=== PATIENT | male | born 1985 | race Caucasian/White ===

== ENCOUNTER 2020-08-30 03:25 | Emergency (ER) | payer MEDICAID, SELFPAY ==
[2020-08-30 03:59] VITALS: BP 119/68; PULSE 94; RESP 20; TEMP 36.9; O2SAT 96; BMI 33.5
[2020-08-30 05:36] VITALS: BP 132/77; PULSE 93; RESP 18; O2SAT 95
--- NOTE | 2020-08-30 05:53 | PC.NURSE ---
PT SEATED ON STRETCHER IN NO DISTRESS. PT HAS EXPIRATORY WHEEZING IN ALL MCDANIEL. MODERATE AIR MOVEMENT.
--- NOTE | 2020-08-30 06:23 | ED.SOB ---
HPI - SOB/Dyspnea General Chief Complaint: Dyspnea Stated Complaint: SOB Time Seen by Provider: 08/30/20 06:15 Source: patient Mode of arrival: ambulatory Limitations: no limitations History of Present Illness HPI Narrative: 35-year-old male who presents emergency department for evaluation of shortness of breath x1 week. Patient states that he has a history of asthma and he ran out of his Breo approximately 1 week prior has not been able to get a refill. Patient states that his asthma usually flares up this time of year secondary to pollen and heat. He states that he feels short of breath and has dyspnea on exertion his occasional chest tightness secondary to difficulty breathing. Points to the center of his chest when asked to localize the tightness he states that is currently mild intensity. He has [id number] dyspnea on exertion. He has been using his rescue inhaler but this is not been affective. He denied fever, chills, nausea, vomiting or diarrhea. He denies myalgias arthralgias. Patient states that he has received 2 shots of the [facility] COVID-19 vaccination in his last vaccination was in May of 2020. Related Data Previous Rx's Medication Instructions Recorded albuterol sulfate 2 puff INHALATION Q4-6H PRN #8.5 g 08/30/20 fluticasone furoate-vilanterol 1 inh INHALATION DAILY #60 ea 08/30/20 [Breo Ellipta] prednisone 60 mg PO DAILY 7 Days #21 tab 08/30/20 Allergies Allergy/AdvReac Type Severity Reaction Status Date / Time SEASONAL ALLERGIES Allergy Unknown DIFFICULTY Uncoded 12/08/19 15:48 BREATHING Review of Systems Review of Systems: Yes all other systems are reviewed and are negative [facility] Past Medical History FOR[facility] Narrative: Past medical history: Asthma. Past surgical history: None. Social history: He denies tobacco, alcohol and drug use. Medical History Asthma Physical Exam Vital Signs: Vital Signs: Last Vital Signs Temp 98.5 F 08/30/20 03:59 Pulse 93 08/30/20 05:36 Resp 18 08/30/20 05:36 BP 132/77 08/30/20 05:36 Pulse Ox 95 08/30/20 05:36 Body Mass Index 33.5 Const: General: cooperative and healthy appearing Orientation/consciousness: oriented to person and oriented to place Limitations: no limitations HENMT: Head: Yes normal to inspection, Yes normocephalic and Yes atraumatic Ears: external ears normal General nose exam: Normal external nose present Face and sinus: Yes normal facial exam Mouth: Normal oral and palatal mucosa present Throat: Yes posterior oropharynx normal Eyes: Periorbital: periorbital findings normal Eyelids: Yes eyelids normal Conjunctivae: conjunctivae normal Sclerae: sclerae normal Corneas: corneas normal Pupils: Equal, round and reactive pupils present Direct Ophthalmoscopy: normal light reflex Neck: Neck: Yes full ROM, Yes no lymphadenopathy, Yes no meningeal signs, Yes trachea midline and Yes supple Chest: Chest palpation & inspection: normal inspection of the chest and normal palpation of entire chest wall Resp: Effort & Inspection: normal respiratory effort and able to speak in complete sentences Auscultation: no crackles, no rhonchi and wheezes scattered wheezes Cardio: Rate: regular rate Rhythm: regular rhythm Heart sounds: S1 normal heart sound present, S2 normal heart sound present and no murmurs GI: Inspection: Yes normal to inspection Palpation (GI): Soft to palpation, nontender, no guarding, not rigid and No hepatosplenomegaly present : General: Yes no CVA tenderness Back/Spine/Pelvis: Back: no CVA tenderness Cervical Spine: normal cervical lordosis Thoracic/Lumbar Spine: thoracic and lumbar spine normal to inspection Skin: Lesions: no lesions Rashes: no rashes Wounds: no wounds Neuro: General: oriented to person, oriented to place and no meningeal signs Cranial nerves: Yes CN's II-XII intact bilaterally and Yes Equal, round and reactive pupils present Cognition (Neuro): normal cognition Motor exam (neuro): 5/5 motor strength present throughout Extrem: General: Yes normal to inspection and Yes full ROM Psych: Appearance: well kempt Mental Status: mental status grossly normal Speech and movement: Normal speech and movement present Affect: normal affect Attitude: cooperative Thought process: Normal thought process present Thought content: Normal thought content present Course Course Course Narrative: 35-year-old male who presents emergency department for evaluation of shortness of breath, chest tightness and occasional cough. Patient does have a history of asthma and ran out of his Breo 1 week prior. Patient's asthma is usually triggered by change in weather such as excess heat and pollen. Physical examination revealed normal vital signs. His lung exam revealed diffuse wheezing otherwise was unremarkable. Patient's presentation is consistent with an asthma exacerbation. Patient was started on prednisone 60 mg once a day for 1 week. I did give a prescription for Breo and for the albuterol inhaler. He was discharged home with printed and verbal instructions. Discharge Plan Discharge Clinical Impression: Asthma with exacerbation Qualifiers: Asthma severity: moderate Asthma persistence: unspecified Qualified Code(s): J45.901 - Unspecified asthma with (acute) exacerbation Patient Disposition: Home, Self-Care Instructions: Asthma (ED) Additional Instructions: Take your Breo once a day as prescribed Continue use your albuterol inhaler 2 puffs every 4-6 hours as needed for shortness of breath. Take prednisone 20 mg pills, 3 pills once a day for 1 week. Follow-up with your doctor in 2 days. Please return to the emergency department if your symptoms get worse or if you develop any symptoms that are concerning to you. Prescriptions: New prednisone 20 mg tablet 60 mg PO DAILY 7 Days Qty: 21 RF: 0 Breo Ellipta 200-25 mcg/dose blister with device 1 inh inhalation DAILY Qty: 60 RF: 0 albuterol sulfate 90 mcg/actuation HFA aerosol inhaler 2 puff inhalation Q4-6H PRN (Reason: shortness of breath or wheezing) Qty: 8.5 RF: 0
== END 2020-08-30 07:02 | disposition home or self-care (01) ==
LOC: HO.ED 06:43
PROVIDERS: Emergency Provider Emergency Medicine Emergency Medical Services
DX: J45.901 Unspecified asthma with (acute) exacerbation (principal)
CPT/HCPCS: 99283

== ENCOUNTER 2020-10-13 12:27 | Emergency (ER) | payer MEDICAID, SELFPAY ==
--- NOTE | ~2020-10-13 | XR_ITS ---
EXAMINATION: XR CHEST CLINICAL INFORMATION: Asthma. COMPARISON: 05/25/2019 chest radiograph. TECHNIQUE: Frontal view of the chest was obtained. FINDINGS: No significant abnormality is noted involving the heart, lungs, mediastinum, bony thorax or soft tissues. XR/XR chest 1V IMPRESSION: No acute cardiopulmonary process.
[2020-10-13 12:40] VITALS: PULSE 104; RESP 15; TEMP 37.2; O2SAT 95; BMI 33.0
[2020-10-13] MEDS: Albuterol Sulfate (0.083%) 2.5 MG/3 ML VIAL.NEB INHALE (13:05)
[2020-10-13 13:18] LABS: COVID-19 Test Negative (Negative); IDNOW Serial# 9DD0AD1C
--- NOTE | 2020-10-13 13:18 | PC.NURSE ---
reports improvement after neb
[2020-10-13] MEDS: predniSONE 20 MG TABLET 60 MG PO (13:32)
[2020-10-13] MEDS: Albuterol/Iprat 2.5/0.5MG 3 ML AMPUL.NEB INHALE (13:39)
[2020-10-13 13:42] VITALS: PULSE 107; O2SAT 93
--- NOTE | 2020-10-13 13:52 | ED.ASTHMA ---
HPI - Asthma General Chief Complaint: Asthma Stated Complaint: asthma - Time Seen by Provider: 10/13/20 13:26 History of Present Illness HPI Narrative: Patient with long history of asthma comes in for an exacerbation is 2-3 days of frequent nebulizer use and today he use the neb and was still wheezing and short of breath and comes to the ER, he denies any recent cough there is no recent sputum there is no runny nose no fever no chills and the wheezing and shortness of breath is the same as many prior asthma exacerbations Related Data Previous Rx's Medication Instructions Recorded albuterol sulfate 90 mcg/actuation 2 puff INHALATION Q4-6H PRN #8.5 g 08/30/20 aerosol inhaler fluticasone furoate 200 1 inh INHALATION DAILY #60 ea 08/30/20 mcg-vilanterol 25 mcg/dose inhalation powder (Breo Ellipta) prednisone 20 mg tablet 60 mg PO DAILY 7 Days #21 tab 08/30/20 albuterol sulfate 2.5 mg INHALATION Q4-6H PRN #75 ml 10/13/20 albuterol sulfate 90 mcg/actuation 2 puff INHALATION Q4-6H PRN #8.5 g 10/13/20 aerosol inhaler (ProAir HFA) prednisone 20 mg tablet 60 mg PO DAILY 5 Days #15 tab 10/13/20 Allergies Allergy/AdvReac Type Severity Reaction Status Date / Time SEASONAL ALLERGIES Allergy Unknown DIFFICULTY Uncoded 12/08/19 15:48 BREATHING Review of Systems Review of Systems: Positive for wheezing and shortness of breath negatives are no fever no chills no dizziness no weakness no fainting no feeling faint no headache no sore throat no neck pain no chest pain no abdominal pain no nausea vomiting no skin rash no leg swelling no calf pain or tenderness Yes all other systems are reviewed and are negative PMFSH Past Medical History Source: nursing notes reviewed Medical History Asthma Social History Social History Alcohol intake: never Patient Tobacco Use Status: Never used Tobacco Smoked in Last 30 Days: No Use of substances other than those prescribed or required for medical reasons: No Advance Directives: No Advance Directives Information Provided: No Physical Exam Vital Signs: Vital Signs: Last Vital Signs Temp 98.9 F 10/13/20 12:40 Pulse 107 H 10/13/20 13:42 Resp 15 10/13/20 12:40 Pulse Ox 95 10/13/20 12:40 Body Mass Index 33.0 General appearance is no acute distress, speaking full sentences The eyes are not read no discharge The pharynx is clear with no exudate redness or swelling Neck is supple The chest as pronounced wheezing bilaterally but no prolonged expiration no respiratory distress no other adventitious sounds and there is good air entry and movement Heart no murmur Abdomen soft nontender Extremities no edema no calf swelling no calf tenderness Skin no rashes Course Course Course Narrative: After 2 nebulizer treatments and prednisone patient feels much better Repeat lung exam showed clear lungs bilaterally with full symmetric equal breath sounds He speaking full sentences, oxygen saturation is 96%, respiratory rate is 16, work of breathing is normal He walked briskly around the ER and did not develop any shortness of breath or wheezing and was discharged MDM - Asthma Lab Data Labs: Lab Results 10/13/20 Range/Units 12:59 COVID-19 ([facility]) Negative (Negative) COVID-19 Clin Com See Note Discharge Plan Discharge Clinical Impression: Asthma Patient Disposition: Home, Self-Care Additional Instructions: Follow with primary doctor Return to the ER if shortness of breath or bed wheezing should recur or any worse condition or any concerns Prescriptions: New prednisone 20 mg tablet 60 mg PO DAILY 5 Days Qty: 15 RF: 0 albuterol sulfate 2.5 mg /3 mL (0.083 %) solution for nebulization 2.5 mg inhalation Q4-6H PRN (Reason: shortness of breath or wheezing) Qty: 75 RF: 0 albuterol sulfate [ProAir HFA] 90 mcg/actuation HFA aerosol inhaler 2 puff inhalation Q4-6H PRN (Reason: shortness of breath or wheezing) Qty: 8.5 RF: 0 No Action prednisone 20 mg tablet 60 mg PO DAILY 7 Days Qty: 21 RF: 0 Breo Ellipta 200-25 mcg/dose blister with device 1 inh inhalation DAILY Qty: 60 RF: 0 albuterol sulfate 90 mcg/actuation HFA aerosol inhaler 2 puff inhalation Q4-6H PRN (Reason: shortness of breath or wheezing) Qty: 8.5 RF: 0 Interventions: ED Discharge Assessment Last Done: 10/13/20 14:04 Discharge Date/Time: 10/13/20 14:05
== END 2020-10-13 14:05 | disposition home or self-care (01) ==
PROVIDERS: Emergency Provider Emergency Medicine
DX: J45.909 Unspecified asthma, uncomplicated (principal); Z20.822 Contact with and (suspected) exposure to COVID-19; R06.02 Shortness of breath
CPT/HCPCS: 36415; 71045; 87635; 94640; 99284

== ENCOUNTER 2023-01-25 00:04 | Emergency (ER) | payer MEDICAID, SELFPAY ==
[2023-01-25] VITALS (13 sets, daily range): BP systolic 107–181; BP diastolic 46–73; PULSE 87–116; RESP 14–20; TEMP 36.7–36.9; O2SAT 86–98; BMI 29.3
--- NOTE | ~2023-01-25 | XR_ITS ---
EXAMINATION: XR CHEST CLINICAL INFORMATION: Dyspnea. COMPARISON: Chest x-ray October 13, 2020 TECHNIQUE: Frontal view of the chest was obtained. 12:22 AM FINDINGS: No significant abnormality is noted involving the heart, lungs, mediastinum, bony thorax or soft tissues. XR/XR chest 1V IMPRESSION: Unremarkable examination.
--- NOTE | 2023-01-25 00:25 | ED.SOB ---
HPI - SOB/Dyspnea General Chief Complaint: Dyspnea Stated Complaint: SoB Time Seen by Provider: 01/25/23 00:19 Source: patient Mode of arrival: ambulatory Limitations: no limitations History of Present Illness HPI Narrative: Patient history of asthma feeling increased shortness of breath since early today use use machine 3 times without much response patient usually gets sick during this time of the season, feels slightly sore throat no URI symptoms no fever or chills no chest pain Related Data Previous Rx's Medication Instructions Recorded albuterol sulfate 90 mcg/actuation 2 puff inhalation Q4-6H PRN 08/30/20 aerosol inhaler shortness of breath or wheezing #8.5 grams fluticasone furoate 200 1 inh inhalation DAILY #60 ea 08/30/20 mcg-vilanterol 25 mcg/dose inhalation powder (Breo Ellipta) prednisone 20 mg tablet 60 mg (3 x 20 mg) PO DAILY 7 days 08/30/20 #21 tabs albuterol sulfate 2.5 mg/3 mL 2.5 mg (3 mL) inhalation Q4-6H PRN 10/13/20 (0.083 %) solution for nebulization shortness of breath or wheezing #75 mL albuterol sulfate 90 mcg/actuation 2 puff inhalation Q4-6H PRN 10/13/20 aerosol inhaler (ProAir HFA) shortness of breath or wheezing #8.5 grams prednisone 20 mg tablet 60 mg (3 x 20 mg) PO DAILY 5 days 10/13/20 #15 tabs albuterol sulfate 2.5 mg/3 mL 2.5 mg (3 mL) inhalation Q4-6H PRN 01/25/23 (0.083 %) solution for nebulization shortness of breath or wheezing #90 mL albuterol sulfate 90 mcg/actuation 2 puff inhalation Q4-6H PRN 01/25/23 aerosol inhaler (ProAir HFA) shortness of breath or wheezing #8.5 grams prednisone 20 mg tablet 40 mg (2 x 20 mg) PO DAILY #10 tabs 01/25/23 Allergies Allergy/AdvReac Type Severity Reaction Status Date / Time SEASONAL ALLERGIES Allergy Unknown DIFFICULTY Uncoded 01/25/23 00:11 BREATHING Review of Systems Review of Systems: Yes all other systems are reviewed and are negative PMFSH Past Medical History Medical History Asthma Social History Social History Alcohol intake: current Alcohol intake frequency: a few times a month Patient Tobacco Use Status: Never used Tobacco Smoked in Last 30 Days: No Use of substances other than those prescribed or required for medical reasons: No Advance Directives: No Advance Directives Information Provided: No Physical Exam Vital Signs: Vital Signs: Last Vital Signs Temp 98.0 F 01/25/23 03:41 Pulse 99 01/25/23 03:41 Resp 18 01/25/23 03:41 BP 107/58 L 01/25/23 03:41 Pulse Ox 97 01/25/23 03:44 O2 Del Method Room Air 01/25/23 03:44 O2 Flow Rate 2 01/25/23 01:44 ED T BMI result Body Mass Index 29.3 Appearance: Alert. Oriented X3. No acute distress. Eyes: No pallor or icterus ENT: Pharynx normal. Oral Mucosa moist Neck: Normal inspection. Neck supple. CVS: Normal heart rate and rhythm. Pulses normal. Respiratory: No respiratory distress. Equal air entry bilateral, bilateral wheezing Abdomen: Soft and nontender. Bowel sounds are present, Skin: Skin warm and dry. Normal skin color. Normal skin turgor. Extremities: No lower extremity edema. No calf tenderness Neuro: Oriented X 3. Medications Administered Discontinued Medications Generic Name Dose Route Start Last Admin Trade Name Freq PRN Reason Stop Dose Admin Albuterol Sulfate 5 mg/ 7.5 mg 01/25/23 00:34 01/25/23 00:36 Albuterol Sulfate 2.5 mg INHALE 01/25/23 00:35 7.5 mg ONCE ONE Administration Albuterol Sulfate 2.5 mg/ 5 mg 01/25/23 03:35 01/25/23 03:37 Albuterol Sulfate 2.5 mg INHALE 01/25/23 03:36 5 mg ONCE ONE Administration Dexamethasone 10 mg 01/25/23 00:25 01/25/23 00:43 Dexamethasone 2 Mg Tablet PO 01/25/23 00:26 10 mg ONCE ONE Administration Levalbuterol HCl 2.5 mg 01/25/23 00:54 01/25/23 00:59 Levalbuterol Hcl 1.25 Mg/3 Ml Vial.Neb INHALE 01/25/23 00:55 2.5 mg ONCE ONE Administration Medical Decision Making Medical Decision Making MDM Narrative: Patient has significant asthma no history of sleep apnea received 2 continuous nebulizing treatment steroids desaturated to 88% while sleeping while awake saturating 97% chest x-ray negative COVID negative will continue to watch may need admission if continued to desaturate After 2nd nebulizing treatment saturating 94% ambulatory feels much better will discharge patient home Differential Diagnosis Differential Diagnoses: The differential diagnosis associated with the presentation includes Asthma/bronchitis/COVID/pneumonia Admission/Observation Consideration of admission/observation: Escalation of care including admission/observation considered Lab Data [facility] Lab Attestation statement: I reviewed the patient's lab results. Labs: Lab Results 01/25/23 Range/Units 00:34 COVID-19 ([facility]) Negative (Negative) COVID-19 Clin Com See Note Influenza Type A (TIM) Negative (Negative) Influenza Type B (TIM) Negative (Negative) Influenza A & B Note See Note S. pyogenes GrpA TIM Negative (Negative) Independent Interpretation I performed an independent interpretation of an: Plain X-Ray Radiology Impression Discussion of test interpretation with radiology: I have reviewed the radiologist's reading. Critical Care Time Critical Care Time Critical Care Time: Yes Total Critical Care Time: 45 Attestation: The patient was critically ill with a high probability of imminent or life threatening deterioration. I spent greater than 50 minutes of discontinuous time evaluating the patient,delivering critical care at the bedside, discussing and evaluating pertinent data with consultants. Critical care time does not include time spent performing separately billable procedures or teaching. Total time spent performing critical care was 45 minutes. Discharge Plan Discharge Patient Disposition: Home, Self-Care Instructions: Asthma (ED) Additional Instructions: Continue use nebulizing treatment/inhaler every 4 hours as needed Steroid as prescribed Report to ER if not feeling better Prescriptions: New albuterol sulfate 2.5 mg /3 mL (0.083 %) solution for nebulization 2.5 mg inhalation Q4-6H PRN (Reason: shortness of breath or wheezing) Qty: 90 0RF albuterol sulfate [ProAir HFA] 90 mcg/actuation HFA aerosol inhaler 2 puff inhalation Q4-6H PRN (Reason: shortness of breath or wheezing) Qty: 8.5 0RF prednisone 20 mg tablet 40 mg PO DAILY Qty: 10 0RF No Action prednisone 20 mg tablet 60 mg PO DAILY 7 Days Qty: 21 0RF Breo Ellipta 200-25 mcg/dose blister with device 1 inh inhalation DAILY Qty: 60 0RF albuterol sulfate 90 mcg/actuation HFA aerosol inhaler 2 puff inhalation Q4-6H PRN (Reason: shortness of breath or wheezing) Qty: 8.5 0RF prednisone 20 mg tablet 60 mg PO DAILY 5 Days Qty: 15 0RF albuterol sulfate 2.5 mg /3 mL (0.083 %) solution for nebulization 2.5 mg inhalation Q4-6H PRN (Reason: shortness of breath or wheezing) Qty: 75 0RF albuterol sulfate [ProAir HFA] 90 mcg/actuation HFA aerosol inhaler 2 puff inhalation Q4-6H PRN (Reason: shortness of breath or wheezing) Qty: 8.5 0RF
--- NOTE | 2023-01-25 00:34 | MHC.EDTECH ---
Patient came in from triage,changed pt into hospital attire and cafeteria monitor placed with O2 monitoring. Strep,Covid,and Flu obtained and sent to lab,RT at bedside and RN.
[2023-01-25] MEDS: Albuterol Sulfate 5 MG, Albuterol Sulfate (0.083%) 2.5 MG 7.5 MG INHALE (00:36)
--- NOTE | 2023-01-25 00:38 | MHC.EDTECH ---
Vitals completed and Sats are 89% room air, RT at bedside giving TX.
[2023-01-25] MEDS: dexAMETHasone 2 MG TABLET 10 MG PO (00:43)
[2023-01-25 00:56] LABS: IDNOW Serial# 6674DD1D; Strep A Nucleic Acid Negative (Negative)
[2023-01-25] MEDS: levalbuterol HCL 1.25 MG/3 ML VIAL.NEB 2.5 MG INHALE (00:59)
[2023-01-25 01:01] LABS: COVID-19 Test Negative (Negative); IDNOW Serial# 08D9AD1C; IDNOW Serial# BCCEAD1C; Influenza A Negative (Negative); Influenza B2 Negative (Negative)
--- NOTE | 2023-01-25 01:41 | PC.NURSE ---
Addendum entered by Clara Gamble RN 01/25/23 01:47 EDT: Pt sats down to 86%, put bck on NC at 2L-94% Original Note: Pt c/o shortness of breath, sats 86% on room air. brought to have cxr and in room, swabs sent to lab, meds given per MAY, Pt placed on 2L NC, given albuterol, and changed to xopenex for increased HR, 130's. Antonio 98 % maintaining on room air.
[2023-01-25] MEDS: Albuterol Sulfate 2.5 MG, Albuterol Sulfate (0.083%) 2.5 MG 5 MG INHALE (03:37)
--- NOTE | 2023-01-25 03:45 | MHC.EDTECH ---
Hourly rounds and vitals completed, Patient was sleeping upon entry and O2 Sat is 88% to 89% on room air MD aware, RT called to give TX,while awake patient's sats are 90% to 92% on room air . RN Nadine is aware
== END 2023-01-25 05:51 | disposition home or self-care (01) ==
PROVIDERS: Emergency Provider Internal Medicine
DX: J45.909 Unspecified asthma, uncomplicated (principal); R06.02 Shortness of breath; Z11.52 Encounter for screening for COVID-19; Z79.899 Other long term (current) drug therapy
CPT/HCPCS: 71045; 87502; 87635; 87651; 94640; 99284; 99285; J8540